=== PATIENT | male | born 1985 | race Two or more races ===

== ENCOUNTER 2022-01-13 16:30 | Emergency (ER) | payer SELFPAY ==
[~2022-01-13] VITALS: Ht 170.2 cm; Wt 70.8 kg
[2022-01-13] MEDS ORDERED: HYDROCODONE/APAP 5/325MG TABLET PO ONE (17:00)
--- NOTE | 2022-01-13 17:00 | NUR ---
Recived pt 36yrs male by w[facility] walking in care run over rt big toe with bleeding and open skin
[2022-01-13] MEDS ORDERED: HYDROCODONE/APAP 5/325MG TABLET ONE (17:02)
--- NOTE | 2022-01-13 17:19 | NUR ---
clean wound by evy RUSSELL TACh with ns
[2022-01-13] MEDS ORDERED: LIDOCAINE HCL/PF 1% 30 ML VIAL TP ONE (18:00)
--- NOTE | 2022-01-13 18:17 | NUR ---
babita at bed side for suture done at bed [place] pt fully awke and alert
--- NOTE | 2022-01-13 18:55 | NUR ---
STRIP FEEDER REMOVED RT BIG TOE KEYSHA
[2022-01-13] MEDS ORDERED: HYDR-4303 PO (19:11)
[2022-01-13] MEDS ORDERED: IBUP-1955 PO (19:11)
[2022-01-13] MEDS ORDERED: AMOX-430 PO (19:11)
--- NOTE | 2022-01-13 19:25 | NUR ---
HAND OFF TO KETTY ARIZA
--- NOTE | 2022-01-13 19:28 | NUR ---
Patient discharged to home in stable condition. Written and verbal after care instructions given. Patient verbalizes understanding of instruction.
[2022-01-13 19:30] VITALS: BP 136/87
== END 2022-01-13 19:30 | disposition home or self-care (01) ==
LOC: ER 16:51
DX: S92.421A Displaced fracture of distal phalanx of right great toe, initial encounter for closed fracture (principal); S91.211A Laceration without foreign body of right great toe with damage to nail, initial encounter; F17.200 Nicotine dependence, unspecified, uncomplicated; V09.9XXA Pedestrian injured in unspecified transport accident, initial encounter; Y93.89 Activity, other specified; Y92.89 Other specified places as the place of occurrence of the external cause; Y99.8 Other external cause status
CPT/HCPCS: 12041; 73630; 99284; 99406; A6403; J3490

== ENCOUNTER 2022-01-15 09:20 | Emergency (ER) | payer SELFPAY ==
[~2022-01-15] VITALS: Ht 170.2 cm; Wt 70.8 kg
[~2022-01-15 09:20] MED LIST: AMOX-430 PO; HYDR-4303 PO; IBUP-1955 PO
--- NOTE | 2022-01-15 09:29 | NUR ---
BIBS FOR FOLLOW UP WOUND CHECK ON R BIG TOES FROM 2 DAYS AGO. VITALS ARE WITHIN NORMAL LIMTIS. BREATHING EVEN AND UNLABORED.
[2022-01-15] MEDS ORDERED: BACI/NEOM/POLY B OINT PKT 1 UDPKT PACKET TP ONE (10:30)
--- NOTE | 2022-01-15 10:43 | NUR ---
Patient discharged to home in stable condition. Written and verbal after care instructions given. Patient verbalizes understanding of instruction.
[2022-01-15 10:44] VITALS: BP 133/79
== END 2022-01-15 10:45 | disposition home or self-care (01) ==
LOC: ER 09:23
DX: S91.211D Laceration without foreign body of right great toe with damage to nail, subsequent encounter (principal); F17.200 Nicotine dependence, unspecified, uncomplicated; Z79.899 Other long term (current) drug therapy; X58.XXXD Exposure to other specified factors, subsequent encounter

== ENCOUNTER 2022-01-26 14:45 | Emergency (ER) | payer SELFPAY ==
[~2022-01-26] VITALS: Ht 170.2 cm; Wt 71.7 kg
[2022-01-26 14:56] VITALS: BP 130/79
--- NOTE | 2022-01-26 15:22 | NUR ---
SUTURE REMOVED BY .
--- NOTE | 2022-01-26 15:33 | NUR ---
WOUND CLEANING AND DRESSING DONE BY [facility].
--- NOTE | 2022-01-26 15:38 | NUR ---
Patient discharged to home in stable condition. Written and verbal after care instructions given. Patient verbalizes understanding of instruction.
== END 2022-01-26 15:39 | disposition home or self-care (01) ==
LOC: ER 14:55
DX: S91.211D Laceration without foreign body of right great toe with damage to nail, subsequent encounter (principal); F17.200 Nicotine dependence, unspecified, uncomplicated; Z60.2 Problems related to living alone; Z79.899 Other long term (current) drug therapy; X58.XXXD Exposure to other specified factors, subsequent encounter